=== PATIENT | male | born 1985 | race Two or more races ===

== ENCOUNTER 2019-10-30 09:09 | Emergency (ER) | payer SELFPAY ==
[~2019-10-30] VITALS: Ht 180.3 cm; Wt 74.8 kg
[2019-10-30 09:11] VITALS: BP 132/82
--- NOTE | 2019-10-30 09:43 | NUR ---
Patient discharged to home in stable condition. Written and verbal after care instructions given. Patient verbalizes understanding of instruction.
== END 2019-10-30 09:43 | disposition home or self-care (01) ==
LOC: ER 09:11
DX: R14.0 Abdominal distension (gaseous) (principal); R19.7 Diarrhea, unspecified